=== PATIENT | male | born 1980 ===

== ENCOUNTER 2019-10-20 14:18 | Emergency (ER) | payer SELFPAY ==
[2019-10-20 14:22] VITALS: BP 144/94; PULSE 90; RESP 18; TEMP 36.5; O2SAT 100
[2019-10-20] MEDS: KETOROLAC (*BKC) 60 MG/2 ML VIAL IM (14:51)
[2019-10-20] MEDS: LORAZEPAM 1 MG TABLET PO (14:51)
--- NOTE | 2019-10-20 15:15 | ED.DENTAL ---
HPI - Dental/Oral General Chief complaint: Dental/Oral Stated complaint: toothache Time Seen by Provider: 10/20/19 14:27 Source: patient Mode of arrival: ambulatory Limitations: no limitations History of Present Illness MD Complaint: tooth pain Location: Tooth # (12) Onset (ago): day(s) Duration: constant Severity: moderate Exacerbating factors: chewing Context: poor dental care Treatment prior to arrival: none Related Data Allergies Allergy/AdvReac Type Severity Reaction Status Date / Time No Known Allergies Allergy Verified 10/20/19 14:26 Review of Systems Review of Systems: Narrative: CONSTITUTIONAL: Denies fever ENT: Reports dentalgia GASTROINTESTINAL: Denies vomiting All systems reviewed & are unremarkable except as noted in HPI and below PMFSH Family History Family History (Updated 10/11/11 @ 14:23 by DOCTOR UNKNOWN) Other Family history of arthritis Social History Social History (Updated 10/20/19 @ 15:18 by Bel Husain PA-C) Smoking status: Current every day smoker Alcohol intake: never Exam Narrative: Exam Narrative: GENERAL: Well-appearing, well-nourished, and in no acute distress. HEAD: Normocephalic, atraumatic. EYES: EOMI. ENT: Mucous membranes moist. Oropharynx without tonsillar hypertrophy exudate or other lesions. Bilateral TMs pearly ramos non-bulging. Poor dentition. No facial swelling or erythema noted. Tooth #12 cracked, tender to palpation, without surrouding erythema or fluctuance to suggest abscess. Floor of mouth soft. No trismus NECK: Supple. No adenopathy or masses. CHEST: Clear to auscultation. No respiratory distress. No wheezes rales or rhonchi HEART: Regular rate and rhythm. No murmur heard. Normal peripheral pulses. EXTREMITIES: Normal range of motion. No edema. SKIN: Warm, dry, no rash. NEURO: No focal deficits. Alert and oriented x3. PSYCH: Normal mood and affect Course Vital Signs Vital signs: Vital Signs Temperature 97.7 F 10/20/19 14:22 Pulse Rate 90 10/20/19 14:22 Respiratory Rate 18 10/20/19 14:22 Blood Pressure 144/94 H 10/20/19 14:22 Pulse Oximetry 100 10/20/19 14:22 Temperature 97.7 F 10/20/19 14:22 Pulse Rate 90 10/20/19 14:22 Respiratory Rate 18 10/20/19 14:22 Blood Pressure 144/94 H 10/20/19 14:22 Pulse Oximetry 100 10/20/19 14:22 MDM - Dental/Oral MDM Narrative Medical decision making narrative: Patient presents the emergency department for toothache since yesterday. Tooth #12 is tender to palpation without surrounding erythema or fluctuance to suggest abscess. Patient given a dose of pain medicine in the ED. He will be started on oral antibiotics. He was instructed on importance of following up with a dentist. Patient was given warnings to return to the ER Critical Care Time Critical Care Time Critical Care Time: No Discharge Plan Discharge Clinical Impression: Toothache Patient Disposition: Home, Self-Care Condition: Stable Instructions: Antibiotic Form, Toothache (ED) Additional Instructions: Return to the Emergency Department if you experience fever >101, increasing swelling and redness of your tooth, or any other symptoms that are concerning to you Take antibiotic as prescribed. Tylenol or Toradol as needed for pain. If you take Toradol do not take other anti-inflammatories (example Aleve, ibuprofen, naproxen, etc.). You can apply a dab of clove oil to a Qtip and apply to the tooth to help numb the area Follow up with your dentist Prescriptions: New amoxicillin-pot clavulanate [Augmentin] 875-125 mg tablet 1 tablet PO Q12H 7 Days Qty: 14 RF: 0 ketorolac 10 mg tablet 10 mg PO Q6H PRN (Reason: pain) 3 Days Qty: 14 RF: 0 Follow-up/Referrals: PHYSICIAN,NURSE ORTHOPAEDIC [Primary Care Provider] -
[2019-10-20 15:34] VITALS: TEMP 36.5
== END 2019-10-20 15:35 | disposition home or self-care (01) ==
PROVIDERS: Emergency Provider Emergency Medicine
DX: K08.89 Other specified disorders of teeth and supporting structures (principal); F17.200 Nicotine dependence, unspecified, uncomplicated
CPT/HCPCS: 96372; 99283; A9270; J1885

== ENCOUNTER 2019-10-21 11:17 | Emergency (ER) | payer SELFPAY ==
[2019-10-21 11:22] VITALS: BP 143/83; PULSE 90; RESP 16; TEMP 36.4; O2SAT 100
--- NOTE | 2019-10-21 12:28 | ED.DENTAL ---
HPI - Dental/Oral General Chief complaint: Dental/Oral Stated complaint: Toothache Time Seen by Provider: 10/21/19 11:25 Source: patient Mode of arrival: ambulatory Limitations: no limitations History of Present Illness HPI Narrative: Patient presents with chief complaint of left upper tooth pain over the past few days. Patient was seen in this emergency department and prescribed Augmentin and Toradol. Patient states that he was able to acquire the antibiotic and began taking it, but he was not able to brass pickler the toradol due to financial constraints. He is requesting toradol injection to help with pain until he can brass pickler the medication. Related Data Allergies Allergy/AdvReac Type Severity Reaction Status Date / Time No Known Allergies Allergy Verified 10/20/19 14:26 Review of Systems Review of Systems: Narrative: CONSTITUTIONAL: Denies fever, chills, or sweats. EYES: Denies visual changes, redness, or discharge. ENT: Reports dental pain denies rhinorrhea, congestion, sore throat, or otalgia. CARDIOVASCULAR: Denies chest pain, palpitations, or edema. RESPIRATORY: Denies cough or dyspnea. GASTROINTESTINAL: Denies abdominal pain, nausea, vomiting, or diarrhea. GENITOURINARY: Denies dysuria or hematuria. SKIN: Denies rash or itching. MUSCULOSKELETAL: Denies back pain, joint pain, or myalgia. NEUROLOGIC: Denies headache, numbness, dizziness, or weakness. PSYCHIATRIC: Denies anxiety or depression. REPLACED BY [facility] Family History Family History (Updated 10/11/11 @ 14:23 by DOCTOR UNKNOWN) Other Family history of arthritis Social History Social History (Updated 10/20/19 @ 15:18 by Bel Husain PA-C) Smoking status: Current every day smoker Alcohol intake: never Gender identity (if verbalized by the patient): Male Exam Narrative: Exam Narrative: GENERAL: Well-appearing, well-nourished. Appears uncomfortable and in pain. HEAD: Normocephalic, atraumatic. EYES: PERRLA and EOMI. ENT: Nares clear, no rhinorrhea or epistaxis. Mucous membranes moist. Tenderness to the left upper tooth #12. No abscess noted. Oropharynx without tonsillar hypertrophy exudate or other lesions. Bilateral TMs pearly ramos nonbulging NECK: Supple. No adenopathy or masses. No carotid bruits or JVD CHEST: Clear to auscultation. No respiratory distress. No wheezes rales or rhonchi HEART: Regular rate and rhythm. EXTREMITIES: Normal range of motion. No edema. SKIN: Warm, dry, no rash. NEURO: No focal deficits. Alert and oriented x3. PSYCH: Normal mood and affect. Course Vital Signs Vital signs: Vital Signs Temperature 97.5 F L 10/21/19 11:22 Pulse Rate 90 10/21/19 11:22 Respiratory Rate 16 10/21/19 11:22 Blood Pressure 143/83 H 10/21/19 11:22 Pulse Oximetry 100 10/21/19 11:22 Temperature 97.5 F L 10/21/19 11:22 Pulse Rate 90 10/21/19 11:22 Respiratory Rate 16 10/21/19 11:22 Blood Pressure 143/83 H 10/21/19 11:22 Pulse Oximetry 100 10/21/19 11:22 MDM - Dental/Oral MDM Narrative Medical decision making narrative: Instructed patient to continue taking antibiotic as directed. We will send a lidocaine viscous to see if that is more affordable pain control. Told the patient that if he cannot afford Toradol he can take [id number] Tylenol or ibuprofen instead. Instructed patient to follow-up with dentist for definitive evaluation and treatment. Differential Diagnosis Differential diagnosis: Likely gingival abscess, dental caries, toothache, dental abscess, fracture of tooth and aphthous ulcer Discharge Plan Discharge Clinical Impression: Toothache, Dental caries Patient Disposition: Home, Self-Care Condition: Improved Instructions: Antibiotic Form, Toothache (ED) Additional Instructions: Continue to take Augmentin as directed. If you cannot afford the Toradol prescribed you may take Tylenol or ibuprofen. I have sent lidocaine viscous to the pharmacy for you to apply to the area of pain
== END 2019-10-21 13:14 | disposition home or self-care (01) ==
PROVIDERS: Emergency Provider Emergency Medicine
DX: K02.9 Dental caries, unspecified (principal); F17.200 Nicotine dependence, unspecified, uncomplicated
CPT/HCPCS: 99283